=== PATIENT | female | born 1990 | race Caucasian/White ===

== ENCOUNTER 2017-05-17 18:42 | Emergency (ER) | payer OTHER ==
[~2017-05-17] VITALS: Ht 165.1 cm; Wt 52.0 kg
[~2017-05-17 18:42] MED LIST: ADDE10 PO; CLON1 PO
[2017-05-17 18:44] VITALS: BP 125/85; PULSE 116; RESP 15; TEMP 98; O2SAT 100
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
[2017-05-17] MEDS ORDERED: ACETAMINOPHEN 325 MG TAB PO ONE (20:30)
[2017-05-17] MEDS ORDERED: IBUPROFEN 600 MG TAB PO ONE (20:30)
--- NOTE | 2017-05-17 21:16 | RADRPT ---
EXAM DATE/TIME: 05/17/2017 20:50 [facility] COMPARISON: No previous studies available for comparison. INDICATIONS : Left hip pain, post fall off counter MEDICAL HISTORY : None. SURGICAL HISTORY : None. ENCOUNTER: Initial ACUITY: 1 day PAIN SCORE: 9/10 LOCATION: Left hip FINDINGS: Examination of the left hip was performed with AP Pelvis. The primary and secondary trabecular patte rn of the femoral neck is intact. The hip joint is of normal width without significant sclerosis or bony hypertrophy. The acetabulum is grossly intact. CONCLUSION: Normal radiographic appearance of the left hip. Gallito Paniagua MD on May 17, 2017 at 21:13 Board Certified Radiologist. This report was verified electronically.
--- NOTE | 2017-05-17 21:16 | RADRPT ---
EXAM DATE/TIME: 05/17/2017 20:53 [facility] COMPARISON: No previous studies available for comparison. INDICATIONS : Left ankle pain, post fall off counter MEDICAL HISTORY : None. SURGICAL HISTORY : None. ENCOUNTER: Initial ACUITY: 1 day PAIN SCORE: 10/10 LOCATION: Left ankle FINDINGS: Three view exam was performed of the left ankle. The bony structures are in normal alignment. No ev idence of fracture, dislocation, or soft tissue swelling. The ankle mortise is intact. No radiopaqu e foreign bodies are seen. Bony mineralization is normal. CONCLUSION: Intact left ankle. Gallito Paniagua MD on May 17, 2017 at 21:14 Board Certified Radiologist. This report was verified electronically.
--- NOTE | 2017-05-17 21:19 | RADRPT ---
EXAM DATE/TIME: 05/17/2017 20:48 [facility] COMPARISON: No previous studies available for comparison. INDICATIONS : Left knee pain, Post fall off counter MEDICAL HISTORY : None. SURGICAL HISTORY : None. ENCOUNTER: Initial ACUITY: 1 day PAIN SCORE: 9/10 LOCATION: Left knee FINDINGS: Four view examination of the left knee demonstrates no evidence of fracture or dislocation. Bony min eralization is normal. The articular surfaces are intact. The suprapatellar soft tissues have a nor mal configuration. CONCLUSION: Normal left knee radiographs. Gallito Paniagua MD on May 17, 2017 at 21:17 Board Certified Radiologist. This report was verified electronically.
[2017-05-17] MEDS ORDERED: MAPA500T13 PO (21:51)
[2017-05-17] MEDS ORDERED: IBUP-232 PO (21:51)
[2017-05-17 21:59] VITALS: BP 117/58; PULSE 100; RESP 18; O2SAT 100
== END 2017-05-17 22:23 | disposition home or self-care (01) ==
LOC: NEPC 18:42
DX: S70.02XA Contusion of left hip, initial encounter (principal); S70.12XA Contusion of left thigh, initial encounter; S83.92XA Sprain of unspecified site of left knee, initial encounter; W17.89XA Other fall from one level to another, initial encounter; Y93.89 Activity, other specified; Y92.000 Kitchen of unspecified non-institutional (private) residence as the place of occurrence of the external cause
CPT/HCPCS: 73502; 73564; 73610; 99284